=== PATIENT | male | born 1980 ===

== ENCOUNTER 2016-07-07 09:20 | Emergency (ER) | payer OTHER ==
[2016-07-07 09:44] VITALS: RESP 16; TEMP 99.1
--- NOTE | 2016-07-07 11:27 | ED PDOC ---
Arrival/HPI - General Chief Complaint: Upper Extremity Problem/Injury Time Seen by Provider: 07/07/16 11:26 Historian: Patient - History of Present Illness Narrative History of Present Illness (Text): 07/07/16 12:23 36-year-old male with right shoulder pain 3 days. Patient denies any recent trauma or injury. Patient states he woke up 3 days ago with pain in the anterior aspect of the shoulder. No chest pain or shortness of breath. No medications taken for pain at home. Patient denies numbness weakness or tingling in the extremity. pt states pain is worse with abduction of the shoulder. no other complaints. Past Medical History - Provider Review Nursing Documentation Reviewed: Yes - Travel History Have you recently traveled outside [place] w/in the past 3 mons?: No - Tetanus Immunization Tetanus Immunization: Unknown - Psychiatric Hx Substance Use: No Family/Social History - Physician Review Nursing Documentation Reviewed: Yes Family/Social History: Unknown Family HX Smoking Status: Heavy Smoker > 10 Cigarettes Daily Hx Alcohol Use: No Hx Substance Use: No Allergies/Home Meds Allergies/Adverse Reactions: Allergies No Known Allergies Allergy (Verified 07/07/16 09:44) Review of Systems - Review of Systems Constitutional: absent: Fatigue, Fevers Respiratory: absent: SOB, Cough Cardiovascular: absent: Chest Pain, Palpitations Gastrointestinal: absent: Abdominal Pain, Diarrhea, Nausea, Vomiting Musculoskeletal: Arthralgias. absent: Back Pain, Neck Pain Skin: absent: Rash, Pruritis Neurological: absent: Headache, Dizziness Psychiatric: absent: Anxiety, Depression Physical Exam Vital Signs Reviewed: Yes Vital Signs Temp Pulse Resp BP Pulse Ox 07/07/16 09:41 99.1 F 106 H 16 120/74 98 Temperature: Afebrile Blood Pressure: Normal Pulse: Tachycardic Respiratory Rate: Normal Appearance: Positive for: Well-Appearing, Non-Toxic, Comfortable Pain Distress: None Mental Status: Positive for: Alert and Oriented X 3 - Systems Exam Head: Present: Atraumatic Mouth: Present: Moist Mucous Membranes Neck: Present: Normal Range of Motion Respiratory/Chest: Present: Clear to Auscultation, Good Air Exchange. No: Respiratory Distress, Accessory Muscle Use Cardiovascular: Present: Regular Rate and Rhythm, Normal S1, S2. No: Murmurs Abdomen: No: Tenderness Upper Extremity: Present: Normal ROM, NORMAL PULSES, Tenderness (right shoulder ; + ttp over anterior aspect of shoulder; no edema, no erythema; no eccymosis; full rom of shoulder with pain on abduction. sensation and distal pulses in tact. cap refill <2. ), Neurovascularly Intact, Capillary Refill < 2s. No: Swelling, Erythema, Deformity Neurological: Present: GCS=15, Speech Normal Skin: Present: Warm, Dry, Normal Color. No: Rashes Psychiatric: Present: Alert, Oriented x 3 Medical Decision Making ED Course and Treatment: 07/07/16 13:29 Patient nontoxic well-appearing in no distress with stable vital signs X-rays of the right shoulder: No fracture, widening of the AC joint Toradol and Flexeril ordered. Patient refused Toradol. Flexeril given by mouth Patient placed in a sling. Patient was advised to use a sling as needed but to continue to range the shoulder regularly.. I discussed all results with patient advised to followup with the orthopedist for the next 2 days. Return if symptoms worsen persist or new symptoms develop Patient verbalizes understanding of discharge instructions and need for immediate followup. all aspects of this case were discussed the attending of record. Impression: Shoulder pain, AC separation Motrin every 6 hours as needed for pain Rest, ice, compression, elevation Followup with the orthopedist within the next 2 days Followup with primary care physician within the next 2 days Return if any other concerning symptoms develop - RAD Interpretation Radiology Orders: 07/07/16 11:27 SHOULDER RIGHT [RAD] Stat - Medication Orders Current Medication Orders: Discontinued Medications Cyclobenzaprine HCl (Flexeril) 10 mg PO STAT STA Stop: 07/07/16 11:28 Last Admin: 07/07/16 12:06 Dose: 10 MG Ketorolac Tromethamine (Toradol) 60 mg IM STAT STA Stop: 07/07/16 11:28 Last Admin: 07/07/16 12:06 Dose: Not Given Non-Admin Reason: Patient Refused Disposition/Present on Arrival - Present on Arrival Any Indicators Present on Arrival: No History of DVT/PE: No History of Uncontrolled Diabetes: No Urinary Catheter: No History of Decub. Ulcer: No History Surgical Site Infection Following: None - Disposition Have Diagnosis and Disposition been Completed?: Yes Diagnosis: Shoulder pain, AC separation Disposition: HOME/ ROUTINE Disposition Time: 11:27 Patient Plan: Discharge Patient Problems: Current Active Problems Problem Status Diagnosed Shoulder pain Acute Condition: GOOD Discharge Instructions (ExitCare): Arthralgia (ED) Additional Instructions: Motrin every 6 hours as needed for pain Rest, ice, compression, elevation Followup with the orthopedist within the next 2 days Followup with primary care physician within the next 2 days Return if any other concerning symptoms develop Prescriptions: Cyclobenzaprine [Cyclobenzaprine HCl] 10 mg PO Q8 #10 tab Ibuprofen [Motrin] 600 mg PO Q6H PRN #20 tab PRN Reason: pain/fever reduction Referrals: Ivan Cobb III, MD [Medical Doctor] - Follow up with primary [facility] [Outside] - Follow up with primary [facility] [place] [Outside] - Follow up with primary Forms: WORK NOTE
--- NOTE | 2016-07-07 11:59 | RAD ---
PROCEDURE: Radiographs of the Right Shoulder HISTORY: shoulder pain 3 days COMPARISON: No prior. FINDINGS: BONES: Bone alignment and mineralization are normal. There is no acute displaced fracture or dislocation. JOINTS: There is mild widening of the acromioclavicular space which measures 7 mm. The glenohumeral joint is normal. SOFT TISSUES: There is mild soft tissue swelling overlying the acromioclavicular joint. OTHER FINDINGS: None. IMPRESSION: Suspect type 1 acromioclavicular separation. No acute fracture or dislocation.
[2016-07-07 12:33] VITALS: BP 105/71; PULSE 75; O2SAT 99
== END 2016-07-07 12:55 | disposition home or self-care (01) ==
LOC: ED 09:20
DX: M25.511 Pain in right shoulder (principal); S43.101A Unspecified dislocation of right acromioclavicular joint, initial encounter; X58.XXXA Exposure to other specified factors, initial encounter; F17.210 Nicotine dependence, cigarettes, uncomplicated

== ENCOUNTER 2016-08-11 16:00 | Emergency (ER) | payer OTHER ==
[2016-08-11 16:15] VITALS: BP 130/79; PULSE 100; TEMP 98.9; O2SAT 98
[2016-08-11] MEDS ORDERED: Naproxen 550 mg Tab PO STA (16:56)
--- NOTE | 2016-08-11 17:19 | ED PDOC ---
Arrival/HPI - General Chief Complaint: Back Pain Time Seen by Provider: 08/11/16 16:42 Historian: Patient - History of Present Illness Narrative History of Present Illness (Text): 08/11/16 17:14 Patient reports injuring his bilateral shoulders, right greater than left, as well as neck pain and back pain which started after he was lifting heavy sheet rock. 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 Otherwise: (-) paresthesias, (-) weakness, (-) acute bowel or bladder dysfunction, (-) fever. Has no history of prior back problem. Past Medical History - Provider Review Nursing Documentation Reviewed: Yes - Tetanus Immunization Tetanus Immunization: Unknown - Psychiatric Hx Substance Use: Yes (marijuana) Family/Social History - Physician Review Nursing Documentation Reviewed: Yes Family/Social History: No Known Family HX Smoking Status: Light Smoker < 10 Cigarettes Daily Hx Alcohol Use: No Hx Substance Use: Yes (marijuana) Allergies/Home Meds Allergies/Adverse Reactions: Allergies No Known Allergies Allergy (Verified 07/07/16 09:44) Review of Systems - Review of Systems Constitutional: Normal. absent: Fatigue, Weight Change, Fevers Respiratory: Normal. absent: SOB, Cough, Sputum Cardiovascular: Normal. absent: Chest Pain, Palpitations, Edema Musculoskeletal: Normal, Arthralgias, Back Pain, Neck Pain. absent: Joint Swelling Skin: Normal. absent: Rash, Pruritis, Skin Lesions Neurological: Normal. absent: Headache, Dizziness, Focal Weakness Physical Exam - Physical Exam Narrative Physical Exam (Text): 08/11/16 17:17 GENERAL APPEARANCE: Patient is awake, alert, oriented x 3, in mild painful distress. SKIN: Warm, dry; (-) cyanosis. EYES: (-) conjunctival pallor. ENMT: Mucous membranes moist. NECK: (-) tenderness, (-) stiffness, (-) lymphadenopathy. CHEST AND RESPIRATORY: (-) rales, (-) rhonchi, (-) wheezes; breath sounds equal bilaterally. HEART AND CARDIOVASCULAR: (-) irregularity; (-) murmur, (-) gallop. ABDOMEN AND GI: Soft; (-) tenderness; (-) palpable mass. BACK: (-) paravertebral tenderness, (+) mild spasm, (-) direct bony tenderness , (-) deformity. Straight leg raising (-) bilaterally. EXTREMITIES: (+) tenderness to the R anterior shoulder, able to abduct both shoulder to 45 degrees only, (-) deformity. Rest of the joints and extremities are non-tender with normal ROM, no edema. Distal pulses good bilaterally. NEURO AND PSYCH: Mental status as above. Intact sensation bilaterally; normal strength in extension of the knees, plantar and dorsiflexion of the toes. DTRs symmetric. Vital Signs Temp Pulse Resp BP Pulse Ox 08/11/16 16:14 98.9 F 100 H 20 130/79 98 Medical Decision Making ED Course and Treatment: 08/11/16 17:19 36 yo M c/o b/l shoulder pain, neck pain and back pain. XRs ordered of b/l shoulders, neck and back pain. XR b/l shoulders: no fracture, no dislocation, no AC separation, as read by PA XR cervical / thoracic / lumbar spine: no fracture, as read by PA Patient advised that official radiology read of XR is still pending and will call the patient if there is any discrepancy within 24 hours. XR results discussed with the patient in great detail. Based on history, exam and diagnostic results plan will be for outpatient follow up. Patient states he fully agrees with and understands discharge instructions. States that he agrees with the plan and disposition. Verbalized and repeated discharge instructions and plan. I have given the patient opportunity to ask any additional questions. Follow up with workman's comp in 1-2 days without fail. Advised to take medication as prescribed. Return to the emergency room at any time for any new or worsening symptoms. 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 Disposition/Present on Arrival - Present on Arrival Any Indicators Present on Arrival: No History of DVT/PE: No History of Uncontrolled Diabetes: No Urinary Catheter: No History of Decub. Ulcer: No History Surgical Site Infection Following: None - Disposition Have Diagnosis and Disposition been Completed?: Yes Diagnosis: Neck pain, Back pain, Shoulder sprain Disposition: HOME/ ROUTINE Disposition Time: 18:13 Patient Plan: Discharge Condition: GOOD Discharge Instructions (ExitCare): Cervical Sprain (ED), Acute Low Back Pain ( ED), Shoulder Sprain (ED) Print Language: TUNISIAN Additional Instructions: Thank you for letting us take care of you today. You were treated for neck pain , back pain, shoulder sprain. The emergency medical care you received today was directed at your acute symptoms. If you were prescribed any medication, please fill it and take as directed. It may take several days for your symptoms to resolve. Return to the Emergency Department if your symptoms worsen, do not improve, or if you have any other problems. Please contact workmen's comp in 2 days for re-evaluation and follow up. Bring any paperwork you were given at discharge with you along with any medications you are taking to your follow up visit. Our treatment cannot replace ongoing medical care by a primary care provider (PCP) outside of the emergency department. Thank you for allowing the [facility] team to be part of your care today. Prescriptions: Cyclobenzaprine [Cyclobenzaprine HCl] 10 mg PO TID #15 tab Meloxicam [Mobic] 15 mg PO DAILY #20 tab Referrals: PCP,NO [Primary Care Provider] - Follow up with primary Forms: WORK NOTE
[2016-08-11 18:38] VITALS: RESP 16
--- NOTE | 2016-08-12 07:19 | RAD ---
PROCEDURE: Cervical Spine Radiographs. HISTORY: Pain. COMPARISON: None. FINDINGS: BONES: Alignment maintained. No fracture. Dens Intact. DISC SPACES: Normal. SOFT TISSUES: Normal. No prevertebral soft tissue swelling. OTHER FINDINGS: None. IMPRESSION: Suboptimal study. No evidence of acute fracture or subluxation.
--- NOTE | 2016-08-12 07:22 | RAD ---
PROCEDURE: Radiographs of the Right Shoulder HISTORY: pain COMPARISON: No prior. FINDINGS: BONES: Normal. No fracture. JOINTS: Mild degenerative changes at the AC joint. Mild narrowing of the subacromial space. . Glenohumeral joint preserved. . SOFT TISSUES: Normal. OTHER FINDINGS: None. IMPRESSION: Suspicious for narrowing of the subacromial space. Correlate clinically for possible rotator cuff tear. If indicated further assessment by MRI may be obtained. No evidence of acute fracture or dislocation.
--- NOTE | 2016-08-12 07:23 | RAD ---
PROCEDURE: Radiographs of the Left Shoulder HISTORY: pain COMPARISON: No prior. FINDINGS: BONES: Normal. No fracture. JOINTS: Normal. Glenohumeral and acromioclavicular joints preserved. No osteoarthritis. SOFT TISSUES: Normal. OTHER FINDINGS: None. IMPRESSION: No evidence of acute fracture or dislocation.
--- NOTE | 2016-08-12 07:23 | RAD ---
HISTORY: pain COMPARISON: No prior. FINDINGS: BONES: Alignment maintained. No fracture. DISC SPACES: Normal. SOFT TISSUES: Normal. OTHER FINDINGS: None. IMPRESSION: No evidence of acute fracture or subluxation.
--- NOTE | 2016-08-12 08:17 | RAD ---
PROCEDURE: Radiographs of the Lumbar Spine. HISTORY: pain COMPARISON: No prior. FINDINGS: BONES: Normal alignment. No listhesis. No fracture. DISC SPACES: Unremarkable. OTHER FINDINGS: None. IMPRESSION: Unremarkable radiographs of the lumbar spine.
== END 2016-08-11 18:38 | disposition home or self-care (01) ==
LOC: ED 16:00
DX: S43.402A Unspecified sprain of left shoulder joint, initial encounter (principal); S43.401A Unspecified sprain of right shoulder joint, initial encounter; X50.0XXA Overexertion from strenuous movement or load, initial encounter; Y93.H3 Activity, building and construction; Y92.89 Other specified places as the place of occurrence of the external cause; Y99.0 Civilian activity done for income or pay; M54.2 Cervicalgia; M54.9 Dorsalgia, unspecified

== ENCOUNTER 2016-08-20 09:21 | Emergency (ER) | payer OTHER ==
[2016-08-20 09:44] VITALS: BMI 20.6
--- NOTE | 2016-08-20 10:45 | ED PDOC ---
Arrival/HPI - General Chief Complaint: Back Pain Time Seen by Provider: 08/20/16 10:30 Historian: Patient - History of Present Illness Narrative History of Present Illness (Text): 08/20/16 10:41 This 36 yo male with pmh arthritis, presents to this ED c/o multiple joint pain since yesterday. Patient stated he has had similar symptoms in the past, with multiple visits to this ED. Denies recent travel, sick contact, fever, sob, rash, urinary symptoms, trauma, dizziness, or abnormal gait. Time/Duration: Other (1 day) Quality: Aching Context: Home Past Medical History - Provider Review Nursing Documentation Reviewed: Yes - Tetanus Immunization Tetanus Immunization: Unknown - Cardiac Hx Cardiac Disorders: No - Pulmonary Hx Respiratory Disorders: No Hx Asthma: No - Neurological Hx Neurological Disorder: No - HEENT Hx Blind: No - Renal Hx Renal Disorder: No - Endocrine/Metabolic Hx Endocrine Disorders: No - Hematological/Oncological Hx Blood Disorders: No - Integumentary Hx Dermatological Disorder: No - Musculoskeletal/Rheumatological Hx Musculoskeletal Disorders: Yes Hx Back Pain: Yes - Gastrointestinal Hx Gastrointestinal Disorders: No - Genitourinary/Gynecological Hx Genitourinary Disorders: No - Psychiatric Hx Psychophysiologic Disorder: No Hx Substance Use: No (denies) Family/Social History - Physician Review Nursing Documentation Reviewed: Yes Family/Social History: No Known Family HX Smoking Status: Light Smoker < 10 Cigarettes Daily Hx Alcohol Use: No Hx Substance Use: No (denies) Allergies/Home Meds Allergies/Adverse Reactions: Allergies No Known Allergies Allergy (Verified 08/20/16 09:45) Review of Systems - Review of Systems Constitutional: Normal. absent: Fatigue, Weight Change, Fevers Eyes: Normal ENT: Normal Respiratory: Normal. absent: SOB, Cough, Sputum Cardiovascular: Normal. absent: Chest Pain, Palpitations Gastrointestinal: Normal. absent: Abdominal Pain, Nausea, Vomiting Genitourinary Male: Normal. absent: Dysuria, Frequency, Hematuria Musculoskeletal: Arthralgias. absent: Back Pain, Neck Pain Skin: Normal. absent: Rash, Pruritis, Skin Lesions Neurological: Normal. absent: Headache, Dizziness, Focal Weakness Endocrine: Normal Hemo/Lymphatic: Normal Psychiatric: Normal Physical Exam Vital Signs Temp Pulse Resp BP Pulse Ox 08/20/16 11:47 98.6 F 74 17 131/66 100 08/20/16 09:45 98.7 F 108 H 16 124/80 99 Temperature: Afebrile Blood Pressure: Normal Pulse: Regular Respiratory Rate: Normal Appearance: Positive for: Well-Appearing, Non-Toxic, Comfortable Pain Distress: None Mental Status: Positive for: Alert and Oriented X 3 - Systems Exam Head: Present: Atraumatic, Normocephalic Pupils: Present: PERRL Extroacular Muscles: Present: EOMI Conjunctiva: Present: Normal Mouth: Present: Moist Mucous Membranes Neck: Present: Normal Range of Motion Respiratory/Chest: Present: Clear to Auscultation, Good Air Exchange. No: Respiratory Distress, Accessory Muscle Use, Wheezes, Retracting, Rhonchi Cardiovascular: Present: Regular Rate and Rhythm, Normal S1, S2. No: Murmurs Abdomen: Present: Normal Bowel Sounds. No: Tenderness, Distention, Peritoneal Signs Back: Present: Normal Inspection Upper Extremity: Present: Normal Inspection, Normal ROM, NORMAL PULSES, Neurovascularly Intact, Capillary Refill < 2s. No: Cyanosis, Edema Lower Extremity: Present: Normal Inspection, NORMAL PULSES, Normal ROM, Neurovascularly Intact, Capillary Refill < 2 s. No: Edema Neurological: Present: GCS=15, CN II-XII Intact, Speech Normal, Motor Func Grossly Intact, Normal Sensory Function, Normal Cerebellar Funct, Gait Normal Skin: Present: Warm, Dry, Normal Color. No: Rashes Psychiatric: Present: Alert, Oriented x 3 Medical Decision Making ED Course and Treatment: 08/20/16 10:47 Patient does not want medication by IV, or blood test. 08/20/16 13:12 Patient is resting comfortably, and is in no acute distress. Patient was instructed to follow up with PMD in 1-2 days for further evaluation Re-evaluation Time: 13:12 Reassessment Condition: Re-examined, Improved - Medication Orders Current Medication Orders: Discontinued Medications Cyclobenzaprine HCl (Flexeril) 10 mg PO STAT STA Stop: 08/20/16 10:50 Last Admin: 08/20/16 10:55 Dose: 10 mg Naproxen (Anaprox Ds) 550 mg PO STAT STA Stop: 08/20/16 10:48 Last Admin: 08/20/16 10:55 Dose: 550 mg Disposition/Present on Arrival - Present on Arrival Any Indicators Present on Arrival: No History of DVT/PE: No History of Uncontrolled Diabetes: No Urinary Catheter: No History of Decub. Ulcer: No History Surgical Site Infection Following: None - Disposition Have Diagnosis and Disposition been Completed?: Yes Diagnosis: Arthralgia Disposition: HOME/ ROUTINE Disposition Time: 13:13 Patient Plan: Discharge Condition: GOOD Discharge Instructions (ExitCare): Arthralgia (ED) Additional Instructions: Call Clinic for follow up visit in 1-2 days. Take medication with food. return to emergency if symptoms worsen. Prescriptions: Methocarbamol [Robaxin-750] 750 mg PO TID PRN #30 tablet PRN Reason: Muscle Spasm Naproxen 500 mg PO BID PRN #20 tab PRN Reason: Pain, Severe (8-10) Referrals: Hardik Berger, [Primary Care Provider] - Follow up with primary [facility] [Outside] - Follow up with primary [facility] [Outside] - Follow up with primary Forms: WORK NOTE
[2016-08-20] MEDS ORDERED: Naproxen 550 mg Tab PO STA (10:47)
[2016-08-20 11:50] VITALS: TEMP 98.6; O2SAT 100
[2016-08-20 13:37] VITALS: BP 128/63; PULSE 81; RESP 16
== END 2016-08-20 13:37 | disposition home or self-care (01) ==
LOC: ED 09:21
DX: M25.50 Pain in unspecified joint (principal)

== ENCOUNTER 2016-09-02 10:59 | Emergency (ER) | payer OTHER ==
[2016-09-02 11:08] VITALS: BP 113/75; RESP 15; TEMP 98.6; O2SAT 97
--- NOTE | 2016-09-02 11:19 | ED PDOC ---
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 wrist pain x 2 days after the work with no fall or trauma. Aching pain, aggravated by movement, no numbness or tingling, no headache or night sweat, no dizziness, no rash, no other medical or psychological complaints. Past Medical History - Provider Review Nursing Documentation Reviewed: Yes - Tetanus Immunization Tetanus Immunization: Unknown - Cardiac Hx Cardiac Disorders: No - Pulmonary Hx Respiratory Disorders: No Hx Asthma: No - Neurological Hx Neurological Disorder: No - HEENT Hx Blind: No - Renal Hx Renal Disorder: No - Endocrine/Metabolic Hx Endocrine Disorders: No - Hematological/Oncological Hx Blood Disorders: No - Integumentary Hx Dermatological Disorder: No - Musculoskeletal/Rheumatological Hx Musculoskeletal Disorders: Yes Hx Back Pain: Yes - Gastrointestinal Hx Gastrointestinal Disorders: No - Genitourinary/Gynecological Hx Genitourinary Disorders: No - Psychiatric Hx Psychophysiologic Disorder: No Hx Substance Use: No (denies) Family/Social History - Physician Review Nursing Documentation Reviewed: Yes Family/Social History: Unknown Family HX Smoking Status: Light Smoker < 10 Cigarettes Daily Hx Alcohol Use: No Hx Substance Use: No (denies) Allergies/Home Meds Allergies/Adverse Reactions: Allergies No Known Allergies Allergy (Verified 09/02/16 11:08) Review of Systems - Review of Systems Constitutional: absent: Fatigue, Fevers Eyes: absent: Vision Changes ENT: absent: Hearing Changes Respiratory: absent: SOB, Cough, Sputum Cardiovascular: absent: Chest Pain Gastrointestinal: absent: Abdominal Pain, Diarrhea, Nausea, Vomiting Musculoskeletal: Arthralgias. absent: Back Pain, Neck Pain, Joint Swelling, Myalgias Skin: absent: Rash, Pruritis, Skin Lesions Psychiatric: absent: Anxiety, Depression, Suicidal Ideation Physical Exam Vital Signs Reviewed: Yes Vital Signs Temp Pulse Resp BP Pulse Ox 09/02/16 11:05 98.6 F 102 H 15 113/75 97 Temperature: Afebrile Blood Pressure: Normal Pulse: Tachycardic Respiratory Rate: Normal Appearance: Positive for: Well-Appearing, Non-Toxic, Comfortable Pain Distress: Moderate Mental Status: Positive for: Alert and Oriented X 3 - Systems Exam Head: Present: Atraumatic, Normocephalic Pupils: Present: PERRL Extroacular Muscles: Present: EOMI Conjunctiva: Present: Normal Mouth: Present: Moist Mucous Membranes Neck: Present: Normal Range of Motion Respiratory/Chest: Present: Clear to Auscultation, Good Air Exchange. No: Respiratory Distress, Accessory Muscle Use Cardiovascular: Present: Regular Rate and Rhythm, Normal S1, S2. No: Murmurs Abdomen: Present: Normal Bowel Sounds. No: Tenderness, Distention, Peritoneal Signs Back: Present: Normal Inspection Upper Extremity: Present: Normal Inspection, Other (Lt. wrist: no wrist or scaphoid tenderness, painful active ulnar deviation but no pain with passive movement, FROM without limitation, no erythematous, no cellulitis or streaking, no ulcers, sensation intact, motor 5/5, +radial pulse, capillary refill< 2 seconds, neurovascular intact. ). No: Cyanosis, Edema Lower Extremity: Present: Normal Inspection. No: Edema Neurological: Present: GCS=15, CN II-XII Intact, Speech Normal Skin: Present: Warm, Dry, Normal Color. No: Rashes Psychiatric: Present: Alert, Oriented x 3, Normal Insight, Normal Concentration Medical Decision Making ED Course and Treatment: 09/02/16 11:19 -cockup splint -indomethacin -there is no indication of emergent radiology studies indicated at this time. -Discharge home with indomethacin, cock up splint, rest, avoid strenuous exercise or activity, follow up with your own pmd and orthopedic within 2 days, return to the ER for any new or worsening signs or symptoms. 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 Disposition/Present on Arrival - Present on Arrival Any Indicators Present on Arrival: No History of DVT/PE: No History of Uncontrolled Diabetes: No Urinary Catheter: No History of Decub. Ulcer: No History Surgical Site Infection Following: None - Disposition Have Diagnosis and Disposition been Completed?: Yes Diagnosis: Tendinitis Disposition: HOME/ ROUTINE Disposition Time: 11:20 Patient Plan: Discharge Condition: GOOD Additional Instructions: Discharge home with indomethacin, cock up splint, rest, avoid strenuous exercise or activity, follow up with your own pmd and orthopedic within 2 days, return to the ER for any new or worsening signs or symptoms. Prescriptions: Indomethacin [Indocin] 50 mg PO TID PRN #30 cap PRN Reason: Other Referrals: Chandni Nelson MD [Staff Provider] - Follow up with primary Forms: WORK NOTE
[2016-09-02 11:21] VITALS: PULSE 96
== END 2016-09-02 12:05 | disposition home or self-care (01) ==
LOC: ED 10:59
DX: M77.9 Enthesopathy, unspecified (principal)